=== PATIENT | female | born 1980 | race Caucasian/White ===

== ENCOUNTER 2017-03-19 08:06 | Emergency (ER) | payer MEDICARE ==
[2017-03-19] MEDS ORDERED: Ondansetron ODT 4 MG TAB ONE (08:58)
== END 2017-03-19 09:00 | disposition home or self-care (01) ==
LOC: ERS 08:06
DX: R11.0 Nausea (principal); J45.909 Unspecified asthma, uncomplicated
CPT/HCPCS: 99283; Q0162

== ENCOUNTER → 2024-03-31 | Emergency (ER) | payer MEDICARE ==
[~2024-03-31] MED LIST: Famotidine/PF 20 mg/2ml Vial ONE
[2024-04-04 15:52] LABS: Anion Gap 15 mmol/L (10-20); Carbon Dioxide 20 mmol/L (22-29); Chloride 109 mmol/L (98-107); Potassium 4.8 mmol/L (3.5-5.1); Sodium 139 mmol/L (136-145)
[2024-04-04 15:53] LABS: ALT (SGPT) 21 U/L (8-55); AST (SGOT) 35 U/L (5-34); Albumin 4.2 g/dL (3.5-5.0); Alkaline Phosphatase 85 U/L (40-110); BUN (Urea Nitrogen) 19 mg/dL (7.0-18.7); Bilirubin, Total 1.2 mg/dL (0.2-1.2); Calc. Creatinine Clearance 0 mL/min (70-130); Calcium 8.5 mg/dL (7.6-10.4); Estimated GFR 92; Glucose 106 mg/dL (70-105); Lipase 20 U/L (8-78); Protein, Total 8.2 g/dL (6.0-8.3)
[2024-04-04 15:57] LABS: Pregnancy Test - Urine (BHCG) Negative (Negative); Pregu Control Background? CLEAR/WHITE (CLR/WHITE); Pregu Control Bar Appear? YES (CONTROL BAR); Specific Gravity 1.029 (1.002-1.036)
[2024-04-04 15:58] LABS: Bilirubin Negative (Negative); Blood, Urine Negative (Negative); Clarity Clear (Clear); Glucose, Urine (Dipstick) Normal (Negative); Ketone, Urine Trace mg/dL (Negative); Leukocyte Negative Leu/uL (Negative); Nitrite Negative (Negative); Protein, Urine (Dipstick) 20 mg/dL (Neg-Trace); Specific Gravity, Urine 1.029 (1.002-1.036); Urobilinogen Normal mg/dL (Less than 2); pH, Urine 5.5 (5.0-9.0)
[2024-04-04 15:59] LABS: Bacteria/HPF None Seen HPF (None Seen); RBC/HPF None Seen HPF (0-3); Squamous Epithelial 0-3 HPF (0-3); WBC/HPF 0-3 HPF (0-3)
[2024-04-05 08:30] LABS: %Basophils 0.3 % (0.0-1.0); %Eosinophils 0.1 % (0.0-10.0); %Lymphocytes 3.8 % (21.0-51.0); %Monocytes 2.8 % (0.0-10.0); %Neutrophils 92.3 % (42.0-75.0); Hematocrit 44.5 % (36.0-47.0); Hemoglobin 15.1 g/dL (12.0-16.0); Mean Corpuscular HGB CONC 33.9 g/dL (32.0-36.0); Mean Corpuscular Hemoglobin 32.8 pg (27.0-31.0); Mean Corpuscular Volume 96.7 fL (78.0-98.0); Mean Platelet Volume 10.9 fL (7.4-10.4); Platelet Count 186 10x3/uL (130-400); RBC Distribution Width 13.8 % (11.5-14.5); White Blood Cell (WBC) Count 10.74 10x3/uL (4.8-10.8)
[2024-04-05 08:31] LABS: #Basophils 0.03 10x3/uL (0.0-0.2); #Eosinophils 0.01 10x3/uL (0.0-0.7); #Neutrophils 9.92 10x3/uL (1.40-6.50)
== END ==
LOC: ERS 10:27
DX: R10.13 Epigastric pain (principal); R10.816 Epigastric abdominal tenderness; R11.2 Nausea with vomiting, unspecified; R19.7 Diarrhea, unspecified; J45.909 Unspecified asthma, uncomplicated; Z79.899 Other long term (current) drug therapy
CPT/HCPCS: 80053; 81003; 81025; 83690; 85025; J3490; 96361; 96374; 96375